=== PATIENT | female | born 1945 | race Caucasian/White ===

== ENCOUNTER 2016-06-23 13:30 | Emergency (ER) | payer OTHER ==
[~2016-06-23] VITALS: Ht 157.5 cm; Wt 73.0 kg
[~2016-06-23 13:30] MED LIST: ASPI1TAB2 PO; IBUP400T22 PO; LISI-313 PO; ONDA4TAB35 PO
[2016-06-23 13:59] VITALS: Ht 157.5 cm; Wt 73.0 kg
--- NOTE | 2016-06-23 15:06 | ERD ---
ER Documentation Chief Complaint Date/Time DATE: 06/23/16 TIME: 15:01 Chief Complaint COUGH X 3 DAYS HPI The patient is a 71-year-old female here with occasionally productive cough 3 weeks, and also intermittent fever for 3 weeks. Reports she had a fever last night, and when she took her temperature was 102. She took some Excedrin with relief of her fever. She reports that her cough is occasionally productive of white sputum. She denies shortness of breath, difficulty breathing, chest pain, nausea, vomiting, diarrhea, headache, ear pain, abdominal pain, or any other symptoms. She denies international travel. She reports sick contacts with same symptoms. She reports being a very occasional smoker, maybe once or twice a week for 2-3 cigarettes. ROS All systems reviewed and are negative except as per history of present illness. Medications Home Meds Active Scripts Acetaminophen* (Tylophen*) 500 Mg Capsule, 500 MG PO Q6H Y for FEVER for 3 Days , #30 TAB Prov:MIRANDA RANDALL, [employer] 06/23/16 Azithromycin* (Zithromax*) 250 Mg Tablet, 250 MG PO .ZPACK DIRECTED, #6 TAB TAKE 500 MG (2 TABS) THE FIRST DAY THEN 250 MG (1 TAB) DAYS 2-5 Prov:MIRANDA RANDALL, [employer] 06/23/16 Ondansetron Hcl* (Zofran* ODT) 4 mg -ODT Tab.disper, 4 MG PO DAILY Y for NAUSEA AND/OR VOMITING, #10 TAB 0 Refills Prov:KATHIA GUZMAN PA-C 11/22/15 Ibuprofen* (Motrin*) 400 Mg Tab, 400 MG PO Q6, #30 TAB 0 Refills Prov:KATHIA GUZMAN PA-C 11/22/15 Reported Medications Lbmgrcc-Tgpgiovjfbpej-Yjloojln* (Excedrin Extra Strength*) 250-250-65 Mg Tablet , 2 TAB PO Q6H Y for PAIN, TAB 11/22/15 Ibuprofen* (Ibuprofen*) 400 Mg Tablet, 400 MG PO QID, TAB 11/22/15 Lisinopril* (Lisinopril*) 5 Mg Tablet, 5 MG PO DAILY, #30 TAB 11/22/15 Allergies Allergies: Coded Allergies: No Known Allergy (Unverified , 11/22/15) PMhx/Soc History of Surgery: No Anesthesia Reaction: No Hx Neurological Disorder: No Hx Respiratory Disorders: No Hx Cardiac Disorders: Yes (HTN) Hx Psychiatric Problems: No Hx Miscellaneous Medical Probl: Yes (migraine NIEVES) Hx Alcohol Use: No Hx Substance Use: No Hx Tobacco Use: No Physical Exam Vitals Vital Signs Date Time Temp Pulse Resp B/P Pulse Ox O2 Delivery O2 Flow Rate FiO2 06/23/16 13:59 97.9 72 18 125/63 95 Physical Exam Const: No acute distress, nontoxic-appearing Vital signs: Reviewed by me, afebrile, no tachycardia Head: Atraumatic Eyes: Normal Conjunctiva, no clear purulent drainage. Extraocular movements intact. ENT: Normal External Ears, Nose and Mouth. No sinus tenderness to palpation. Ear canals clear. Tympanic membranes without erythema, bulging, or effusion. Nares patent and without rhinorrhea. Throat is clear and without erythema or purulence. Airway patent. Moist mucous membranes. Neck: Full range of motion..~ No meningismus. No lymphadenopathy. Resp: Clear to auscultation bilaterally. No adventitious breath sounds. Cardio: Regular rate and rhythm, no murmurs Abd: Soft, non tender, non distended. Normal bowel sounds in all quadrants. Skin: No petechiae or rashes Back: No midline or flank tenderness Ext: No cyanosis, or edema Neur: Awake and alert Psych: Normal Mood and Affect Procedures/MDM Nursing Notes Reviewed Previous Medical Records requested via [employer]. EMERGENCY DEPARTMENT COURSE / MEDICAL DECISION MAKING: The patient comes to the ED secondary to occasionally productive cough and intermittent fever 3 weeks. Differential diagnosis upon initial evaluation includes but is not limited to: Pneumonia, viral URI, bronchitis, meningitis, and others Final impression: pneumonia Given the patient's duration of symptoms, and that her fever has come and gone intermittently over the past 3 weeks and has been as high as 102, I have a high suspicion for pneumonia. The patient will be treated with a Z-Vidhi and close outpatient follow-up for a recheck. She will be prescribed Tylenol for control of her fevers. At this time, I have low suspicion for meningitis as the patient does not have a headache, stiff neck, or photophobia. This time, given the patient's normal vital signs, no respiratory distress, no chest pain, benign physical exam, and general well appearance, I believe that she is an appropriate candidate for outpatient management and follow-up at this time. I counseled her to please take her medication as prescribed, and get plenty of fluids and plenty of rest. She verbalized understanding and agreed to the plan of care. All of her questions and concerns were addressed prior to discharge. Based on patient's history of present illness and physical examination the decision was made to discharge. There is no evidence of life threatening injuries or illnesses at this time. On re-examination, patient resting in no distress, stable vital signs, reports feeling better and safe for discharge with outpatient follow up with PMD in 1-2 days. Patient given return precautions. I stressed to the patient, that because of her age is of importance to have a recheck with her primary care provider within the next 2 days. She verbalized understanding and agreed. She will return for any new symptoms, worsening symptoms, changing symptoms, or concerns. Prescriptions Tylenol z-vidhi Departure Diagnosis: Primary Impression: Pneumonia Condition: Stable MIRANDA RANDALL NP Jun 23, 2016 15:06
[2016-06-23] MEDS ORDERED: ACET500C5 PO (15:08)
[2016-06-23] MEDS ORDERED: AZIT250T94 PO (15:08)
== END 2016-06-23 15:10 | disposition home or self-care (01) ==
LOC: FTE 13:30 → E/R 15:10
DX: J18.9 Pneumonia, unspecified organism (principal); I10 Essential (primary) hypertension; F17.210 Nicotine dependence, cigarettes, uncomplicated; Z79.82 Long term (current) use of aspirin
CPT/HCPCS: 99283